=== PATIENT | female | born 1965 | race Caucasian/White ===

== ENCOUNTER → 2024-05-16 13:09 | Emergency (ER) | payer BC, SELFPAY ==
[2024-05-16 13:10] VITALS: BMI 22.5
[2024-05-16 13:11] VITALS: BP 127/69
[2024-05-16 13:50] VITALS: BP 129/72
--- NOTE | 2024-05-16 13:54 | ED.GENMED ---
History of Present Illness
General
Chief Complaint: Musculo-Skeletal Complaint
Time Seen by Provider: 05/16/24 13:26
History of Present Illness
History of Present Illness:
58-year-old female with history of breast cancer presenting to the emergency department for left arm pain. Patient reports around 9:00 she took 2 tablets of dexamethasone as instructed by her oncologist. She is supposed to have chemotherapy
tomorrow, reports that it was a pretreatment. She has not yet started chemotherapy. She had a port placed on last Tuesday, 1 week ago. About an hour after taking the medication she started to have left arm pain, starting in the shoulder region,
radiating to the left fifth fourth and third digits. Denies any chest pain or difficulty breathing. Denies fever or cough. Reports that she then went to get her hair done and noticed that her left eye looked ' '. Denies any associated
weakness or numbness. Denies abdominal pain or GI symptoms. Denies additional acute medical complaints
Past History
Past History
ED Past Medical History: None
ED Past Surgical History: None
Patient has exhibited threatening behavior?: No
Social History
Living: with family
Phy Exam
Physical Exam
Physical Exam:
General: Well-appearing, no clinical signs of dehydration, nontoxic and in no acute distress
HEENT: protecting airway, pupils equal and reactive, extraocular movements intact. 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
Neck: appears supple
CV: Normal heart rate, regular rhythm
Resp: No accessory muscle use, no increased work of breathing, lungs clear to auscultation bilaterally. New port at the left chest wall with scattered healing ecchymosis. No erythema or any drainage
Abd: Soft and non-distended, no tenderness to palpation, normal bowel sounds
Extremities: No deformities, no swelling
Neuro: alert, no focal neurologic deficit
: deferred
Rectal: deferred
Psych: Normal affect
Skin: Intact
Course
Orders/Labs/Results
Orders:
Orders
05/16/24 13:15
Electrocardiogram (*1) Urgent
Reason for Study: Other
Other Reason for Exam: left arm, jaw pain
EKG- Treatment ONCE
05/16/24 13:59
Complete Blood Count/With Diff Urgent
Comprehensive Metabolic Panel Urgent
Troponin I Urgent
Abnormal Lab Results
05/16/24
13:59
RBC 4.01 L 10^6/uL
(4.20-5.40)
Hct 36.8 L %
(37.0-47.0)
MCH 31.9 H pg
(27.0-31.0)
MPV 11.5 H fL
(7.4-10.4)
Absolute Neuts (auto) 8.6 H 10^3/uL
(1.4-6.5)
Absolute Lymphs (auto) 0.4 L 10^3/uL
(1.2-3.4)
Absolute Monos (auto) 0.0 L 10^3/uL
(0.1-0.6)
Neutrophils % 94.9 H %
(42.2-75.2)
Lymphocytes % 4.3 L %
(20.5-51.1)
Monocytes % 0.3 L %
(1.7-9.3)
Glucose 151 H mg/dl
(70-99)
05/16/24 13:59
05/16/24 13:59
Vital Signs
Initial and Last Documented VS:
Initial Vital Signs
Temp Pulse Resp BP Pulse Ox
98.1 F 82 16 127/69 99
05/16/24 13:11 05/16/24 13:11 05/16/24 13:11 05/16/24 13:11 05/16/24 13:11
Last Documented Vital Signs
Temp Pulse Resp BP Pulse Ox
98.1 F 70 21 129/72 99
05/16/24 13:11 05/16/24 14:00 05/16/24 14:00 05/16/24 13:50 05/16/24 13:50
MDM/Problems Addressed
MDM/Problems Addressed:
58-year-old female with history of breast cancer presenting for left arm pain after taking dexamethasone. Vital signs are normal.
On exam patient is resting comfortably, no acute distress or discomfort. Patient reports that her symptoms are primarily pain to the left arm, from the shoulder third, fourth, fifth digits. No deformity or swelling to the arm with range of motion
intact. No weakness or numbness. Ultimately suspect some sort of ulnar nerve irritation, causing patient's pain, given distribution of symptoms. Patient additionally ports that her left eye looks ' '. No abnormality to the left eye with
pupils equal and reactive, extraocular movements intact, and patient denying any visual abnormality. Without present concern for central neurologic process. No concern for anaphylaxis, notes that it started after taking dexamethasone. No systemic
rash, no respiratory symptoms, no GI symptoms. No chest pain or difficulty breathing with lower suspicion for ACS. EKG obtained on arrival, nonischemic. Will screen further with laboratory analysis. Patient reports that she has had reactions to
topical steroids in the past. Possible drug intolerance rather than drug reaction. Advised calling her oncologist regarding any drug substitution because she is supposed to have another dose tonight.
15:20 - Labs are unremarkable. On reassessment patient remains stable. Continue to suspect possible drug intolerance versus drug allergy. Additionally suspect some ulnar radiculopathy. Remains neurologically intact. Feel stable for discharge
with continued outpatient follow-up. Return precautions discussed and patient verbalized understanding
*EKG
Interpreted by ED Provider?: Yes
EKG Intrepretation Date: 05/16/24
EKG Intrepretation Time: 14:01
Interpretation: normal
Comparison EKG: no comparison EKG present
Heart Rate: 74
Rate: normal
Rhythm: sinus
[place]: left axis deviation
Interval: normal interval
QRS Pattern: normal QRS
Ischemia: no ischemia
*Critical Care Note
Total Time (30-74mins, 75-104mins- exclusive of procedures): Not Applicable
ED Attending Note
-
Portions of this chart may have been created with voice recognition software.� Occasional wrong word or��sound alike� substitutions may have occurred due to the inherent limitations of voice recognition software.
Discharge Plan
Departure
Referrals:
Manjit Menezes MD [Family Provider] -
Interventions
Interventions:
*Risk Screen - Suicide Last Done: 05/16/24 13:11
*General Assessment Last Done: 05/16/24 13:11
*Neglect/Abuse Screening Last Done: 05/16/24 13:11
*ED- Fall Risk Assessment Last Done: 05/16/24 13:38
*ED COVID-19 Vaccine History Last Done: 05/16/24 13:11
ED-Musculoskeletal Assessment Last Done: 05/16/24 13:40
Discharge Date and Time
Print Language: ANGOLAN
[2024-05-16 14:12] LABS: % Basophils 0.3 % (0-2); % Immature Granulocytes 0.2 % (0-0.5); % Lymphocytes 4.3 % (20.5-51.1); % Monocytes 0.3 % (1.7-9.3); % Neutrophils 94.9 % (42.2-75.2); Absolute Lymphocytes 0.4 10^3/uL (1.2-3.4); Absolute Neutrophils 8.6 10^3/uL (1.4-6.5); Hematocrit 36.8 % (37.0-47.0); Hemoglobin 12.8 g/dL (12.0-16.0); Mean Corp Hgb Conc. 34.8 g/dL (33.0-37.0); Mean Corpuscular Hgb 31.9 pg (27.0-31.0); Mean Corpuscular Volume 91.8 fL (81.0-99.0); Mean Platelet Volume 11.5 fL (7.4-10.4); Nucleated Red Blood Cells % 0 %; Platelet Count 185 10^3/uL (130-400); Red Blood Cell Count 4.01 10^6/uL (4.20-5.40); Red Cell Dist. Width 11.5 % (11.5-14.5); White Blood Cell Count 9.1 10^3/uL (4.8-10.8)
[2024-05-16 14:27] LABS: ALT (SGPT) 18 U/L (0-35); AST (SGOT) 25 U/L (14-36); Albumin 4.3 g/dl (3.5-5.0); Alkaline Phosphatase 126 U/L (38-126); Blood Urea Nitrogen 13 mg/dl (7-17); Calcium 9.9 mg/dl (8.4-10.2); Carbon Dioxide 28 mmol/L (22-30); Chloride 105 mmol/L (98-107); Estimated Creatinine Clearance 77 ml/min; Glucose 151 mg/dl (70-99); Potassium 4.2 mmol/L (3.5-5.1); Sodium 141 mmol/L (135-145); Total Bilirubin 0.4 mg/dl (0.2-1.3); Total Protein 7.2 g/dl (6.3-8.2); eGFR > 60.00
[2024-05-16 14:42] LABS: Troponin I < 0.012 ng/ml
[2024-05-16 15:26] VITALS: BP 133/81
== END | disposition home or self-care (01) ==
LOC: EMR 13:09
PROVIDERS: EMERGENCY PHYSICIAN Student in an Organized Health Care Education/Training Program; FAMILY PHYSICIAN Internal Medicine Rheumatology
DX: M79.602 Pain in left arm (principal); C50.919 Malignant neoplasm of unspecified site of unspecified female breast
CPT/HCPCS: 99284; 80053; 84484; 85025; 93005